=== PATIENT | female | born 1995 | race Caucasian/White ===

== ENCOUNTER 2025-11-07 10:04 | Emergency (ER) | payer MEDICAID, SELFPAY ==
[2025-11-07 10:05] VITALS: BMI 41.3
[2025-11-07 10:20] VITALS: BP 153/99; PULSE 107; RESP 18; TEMP 37.3; O2SAT 98
--- NOTE | 2025-11-07 10:54 | XR_ITS ---
EXAMINATION: PA chest single view TECHNIQUE: Upright PA chest single view Date and time: November 07, 2025, 1057 hours INDICATIONS: Shortness of breath today. FINDINGS: Significant pneumonia right base No significant cardiac enlargement Intact osseous structures IMPRESSION: Significant pneumonia right base
--- NOTE | 2025-11-07 10:57 | XR_ITS ---
Examination: CT brain head without contrast. 2-D sagittal coronal reconstructions Date and time of exam: November 072024, 11:59 a.m. INDICATIONS: Headaches beginning 3 days ago CTDI: vol (mGy): 51.6 DLP: (mGycm): 1006 Technique: Multiple CT axial sections of the brain have been obtained, 5 mm slice thickness. Contrast has not been administered. 2-D sagittal, coronal reconstructions have been obtained Low dose protocols were performed. One or more of the following dose reduction techniques were used; automated exposure control, adjustment of the mA and/or KV according to patient size, use of iterative reconstruction technique. Findings: No significant ventricular enlargement. Intra-axial or extra-axial hemorrhage density is not seen. No mass effect or midline shift Basal cisterns are not remarkable. Fourth ventricle is midline. Cranial vault intact. Impression: Negative for acute hemorrhage, mass effect or midline shift Significant chronic ethmoid sinusitis
[2025-11-07] MEDS: ACETAMINOPHEN 500 MG TABLET 1000 MG PO (11:20)
--- NOTE | 2025-11-07 11:20 | EDNOTE_ITS ---
<Statement entered by Rachael Mccall MD - 11/09/25 17:41> As co-signing physician, I was present and available for consult prn. I concur with the plan and care as documented by the midlevel provider. Upper Respiratory Inf. RME/HPI General Chief Complaint: Headache Stated Complaint: HEADACHE, COUGH, CONGESTION X3 DAYS Time Seen by Provider: 11/07/25 10:41 Arrival date/time: 11/07/25 10:04 RME / HPI RME / HPI Narrative: 22-year-old female past medical history of asthma has not used her inhaler in a long time, whose had a headache only 1 time in the past which was similar to this but associated with vertigo presents to the ER complaining of persistent left-sided headache for the past 3 days along with cough, congestion, generalized malaise, generalized weakness, wheezing, nausea, mild shortness of breath. Patient states she started her period 2 days ago and has been heavier than normal as well. Denies any numbness, tingling, weakness, vision changes, chest pain, earache, sore throat. Patient was referred here to the ER from the clinic for further evaluation. Related Data Previous Rx's ?Medication ?Instructions ?Recorded meclizine 50 mg tablet 50 mg PO BID PRN dizziness # 30 tabs 05/11/23 Allergies Allergy/AdvReac Type Severity Reaction Status Date / Time No Known Allergies Allergy Unknown Verified 11/07/25 10:07 ED Exam Narrative Physical exam: Constitutional: Patient alert and oriented. Well appearing. No acute distress. Not toxic appearing. Head: Normocephalic, atraumatic. Eyes: Periorbital regions bilaterally normal to inspection. Conjunctiva clear bilaterally. Sclera anicteric bilaterally. Pupils equal, round, reactive to light bilaterally. Extraocular movements intact bilaterally. Ears: External ears normal to inspection bilaterally. No mastoid tenderness bilaterally. EAC without edema or exudate bilaterally. TMs without erythema or bulging. Mouth/Throat: Positive scant erythema edema of oropharynx. Mucous membranes moist. No stridor or muffled voice. Uvula midline. Rise and fall of soft palate normal. No tonsillar edema or exudate. No peritonsillar fullness. No trismus. Handling secretions without difficulty. Airway widely patent. Neck: Supple. Trachea midline. No JVD. No nuchal rigidity. No midline tenderness or step-offs. Normal range of motion. Respiratory: Normal effort. No accessory muscle use or respiratory distress. Positive expiratory wheezing to lung espinoza bilaterally along with rhonchi. Cardiovascular: RRR. Normal S1/S2. No murmurs or rubs. Radial pulses intact bilaterally. Abdomen: Soft. Non-distended. Non-tender throughout. No pulsatile mass. No guarding or rebound. Negative Werner?s sign. Negative McBurney?s point tenderness. Negative Rovsing?s. Back: No midline tenderness or step-offs. No CVA tenderness to palpation bilaterally. Upper Extremities: No gross deformities. Lower Extremities: No gross deformities. No edema or calf tenderness. Neuro: Speech normal. No gross motor or sensory deficits to upper or lower extremities bilaterally. GCS 15. CN II?XII grossly intact. Skin: Warm, dry, normal color. Psych: Normal affect. Cooperative. Normal insight. Course Course Course Narrative: At the time of reassessment prior to discharge, the patient remains alert and oriented ?3 with GCS 15. Vitals are normal, pain is controlled, and the patient is tolerating oral intake without nausea or vomiting. The patient is agreeable to discharge and verbalizes understanding of the diagnosis, studies, treatment plan, medications (including side effects/precautions), and strict ER return precautions as discussed in the ED. All concerns were addressed, and the patient is comfortable with the plan. Quality Measures none Orders Category Date Time Status CT head/brain wo con Stat Exams 11/07/25 10:57 Completed XR chest 1V Stat Exams 11/07/25 10:54 Completed Blood Culture (Lab) Stat Lab 11/07/25 11:27 Received CBC Stat Lab 11/07/25 11:32 Completed CMP [Comprehensive Metabolic Panel] Stat Lab 11/07/25 11:32 Completed HCG,Qualitative Serum Stat Lab 11/07/25 11:32 Completed Lactic Acid [Lactate (Lactic Acid)] Stat Lab 11/07/25 11:32 Completed Procalcitonin Stat Lab 11/07/25 11:32 Completed Urinalysis, C/S if Indicated Stat Lab 11/07/25 11:54 Completed ALBUTEROL RT 0.5ml [Proventil Rt 0.5ml] Med 11/07/25 10:56 Discontinued 2.5 mg INH X1 ONE Acetaminophen Tab [Tylenol ES Tab] Med 11/07/25 10:56 Discontinued 1,000 mg PO X1 ONE Azithromycin Po [Zithromax PO] Med 11/07/25 12:55 Discontinued 500 mg PO X1 ONE DiphenhydrAMINE [Benadryl] Med 11/07/25 10:54 Discontinued 25 mg PO X1 ONE Ipratropium [place] Rt Claudia [Atrovent Rt Claudia] Med 11/07/25 10:56 Discontinued 0.5 mg INH X1 ONE Ketorolac Inj [Toradol Inj] Med 11/07/25 10:54 Discontinued 30 mg IM X1 ONE Prochlorperazine Inj [Compazine Inj] Med 11/07/25 10:54 Discontinued 10 mg IM X1 ONE Sodium Chloride Rt Claudia 0.9% [NS Rt Claudia 0.9%] Med 11/07/25 10:56 Active 3 ml INH PRN PRN Sodium Chloride Rt Claudia 0.9% [NS Rt Claudia 0.9%] Med 11/07/25 10:56 Active 3 ml INH PRN PRN Sodium Chloride Rt Claudia 0.9% [NS Rt Claudia 0.9%] Med 11/07/25 10:56 Active 3 ml INH PRN PRN cefTRIAXone [Rocephin] 1,000 mg Med 11/07/25 12:55 Discontinued Lidocaine 1% Pf Vial 5ml [Xylocaine 1% Pf 5 ml] 2.1 ml IM X1 dexAMETHasone INJ [Decadron Inj] Med 11/07/25 10:54 Discontinued 10 mg IM X1 ONE Vital Signs Vital signs: Vital Signs Temperature 99.2 F 11/07/25 10:20 Pulse Rate 107 H 11/07/25 10:20 Respiratory Rate 18 11/07/25 10:20 Blood Pressure 153/99 H 11/07/25 10:20 Pulse Oximetry (%) 98 11/07/25 10:20 Oxygen Delivery Method Room Air 11/07/25 10:20 Upper Respiratory Infection MDM Narrative MDM Narrative:: MDM: This patient has an uncomplicated community-acquired pneumonia. PSI port score risk class I independent of pH and partial fracture of oxygen which were not obtained maximum be class II. based on vital signs, physical exam, pulse oximetry, other testing, and underlying medical conditions, this patient appears to be appropriate for outpatient therapy with ability to stay well hydrated and complete an appropriate oral antibiotic course. This patient has evidence of an acute exacerbation of chronic bronchospastic disease. The patient has received bronchodilator treatment and has been reassessed with objective improvement noted on exam. The patient has access to further bronchodilator treatment after discharge and has received additional appropriate care. Admission was considered, but not indicated at this time. However, since there is always the possibility of decompensation, the patient has been given instructions to return immediately for any change or worsening of symptoms. The patient is also recommended to follow-up with their PMD in 2 days, or sooner, for any worsening symptoms. Patient data External records reviewed:: [facility] previous records Clinical information provided by:: patient Social determinants that could affect healthcare access:: none Patient has the following chronic illnesses:: Asthma How is presenting disease/condition affected by chronic disease/condition?: exacerbated by Evaluation data The following diagnostics were reviewed and interpreted by me:: lab results, radiology exam(s) and other (specify) Lab and/or radiology exams considered but not ordered:: Additional Labs and radiology considered, but not ordered as they were not clinically indicated at this time. Interpretation Summary: Lab work notable for minimally low hemoglobin 11.9, blood noted in urine otherwise lactic acid within normal limits, procalcitonin undetectable and there is no severe metabolic or electrolyte abnormality Influenza negative Chest x-ray concerning for pneumonia with a focal consolidation of the right lower lung base CT brain without acute intra cranial abnormality Medications / Prescriptions Medications or Prescriptions considered but not ordered:: I ordered medications based on the patient?s clinical needs and assessment, as documented in the chart. For medications not prescribed, they were not indicated for the patient's current condition, and I determined they were unnecessary at this time to avoid potential risks or complications. Medication administrations:: Medication Administration History Sodium Chloride (Sodium Chloride Rt Claudia 0.9% 3 Ml Nebu) 3 ml INH PRN PRN PRN Reason: SOLN Stop: 12/07/25 10:55 Sodium Chloride (Sodium Chloride Rt Claudia 0.9% 3 Ml Nebu) 3 ml INH PRN PRN PRN Reason: SOLN Stop: 12/07/25 10:55 Sodium Chloride (Sodium Chloride Rt Claudia 0.9% 3 Ml Nebu) 3 ml INH PRN PRN PRN Reason: SOLN Stop: 12/07/25 10:55 Discontinued Medications Acetaminophen (Acetaminophen 500 Mg Tablet) 1,000 mg PO X1 ONE Stop: 11/07/25 10:57 Last Admin: 11/07/25 11:20 Dose: 1,000 mg Documented By: Albuterol (Albuterol Rt 2.5 Mg/0.5 Ml Nebu) 2.5 mg INH X1 ONE Stop: 11/07/25 10:57 Last Admin: 11/07/25 11:42 Dose: 2.5 mg Documented By: ANA LILIA Azithromycin (Azithromycin 250 Mg Tablet) 500 mg PO X1 ONE Stop: 11/07/25 12:56 Last Admin: 11/07/25 13:44 Dose: 500 mg Documented By: Ceftriaxone Sodium 1,000 mg/ (Lidocaine HCl 2.1 ml) 0 mg IM X1 ONE Stop: 11/07/25 12:56 Last Admin: 11/07/25 13:46 Dose: 1,000 mg Documented By: Dexamethasone Sodium Phosphate (Dexamethasone Sod Phos Inj 10 Mg/Ml Vial) 10 mg IM X1 ONE Stop: 11/07/25 10:55 Last Admin: 11/07/25 11:21 Dose: 10 mg Documented By: Diphenhydramine HCl (Diphenhydramine 25 Mg Capsule) 25 mg PO X1 ONE Stop: 11/07/25 10:55 Last Admin: 11/07/25 11:24 Dose: Not Given Documented By: Non-Admin Reason: Patient Refused Ipratropium [place] (Ipratropium Rt 0.5 Mg/ 2.5 Ml Nebu) 0.5 mg INH X1 ONE Stop: 11/07/25 10:57 Last Admin: 11/07/25 11:42 Dose: 0.5 mg Documented By: ANA LILIA Ketorolac Tromethamine (Ketorolac Inj 30 Mg/Ml Vial) 30 mg IM X1 ONE Stop: 11/07/25 10:55 Last Admin: 11/07/25 11:24 Dose: Not Given Documented By: Non-Admin Reason: Patient Refused Prochlorperazine Edisylate (Prochlorperazine Inj 5 Mg/Ml Vial 2 Ml) 10 mg IM X1 ONE; Protocol Stop: 11/07/25 10:55 Last Admin: 11/07/25 11:24 Dose: Not Given Documented By: Non-Admin Reason: Patient Refused As noted Consultations Consultation(s) initiated? (list below): No Diagnosis Upper Respiratory Differential Diagnosis: upper respiratory infection, bronchitis and influenza Most likely diagnosis given after review of the tests above:: Community-acquired pneumonia complicated by acute asthma exacerbation Admission Indicated Admission indicated?: not indicated Explain why admission is indicated or not indicated:: Escalation of care including admission/observation considered but I decided to discharge because based on the overall clinical presentation, and after consideration of the patient's course in the emergency department and plan for outpatient management, I believe that neither further observation nor inpatient care is required at this time. Admission Request Was there a request for admission?: No Disposition Plan Disposition Plan: Discharge Discharge Attestation Discharge Attestation: The patient and all family members were given an opportunity to ask questions and understood the discharge instructions. Discharge instructions specifically effects, indications for sooner follow up or return to the emergency department, and the expected course of current diagnosis. Patient condition: Stable Discharge Plan Plan Patient Disposition: HOME (Self Care) Patient condition on transfer: Stable Prescriptions/Referrals Prescriptions/Med Rec: No Action meclizine 50 mg tablet 50 mg PO BID PRN (Reason: dizziness) Qty: 30 0RF Referrals: Juan Scott MD [Primary Care Provider, Family Practice] - In 1 week Problem List Clinical Impression: Pneumonia, Asthma exacerbation Patient/Caregiver Discharge Instructions Education Materials: ED Pneumonia (Adult), Asthma Additional Instructions: Follow up with your primary medical doctor within 24 hours. Return to the Emergency Room immediately for any new, worsening, continuing symptoms or any concerns at all. Return to the Emergency Room within 24 hours if you are unable to follow up with your primary medical doctor within 24 hours. Print Language: Libyan Stand Alone Forms: Emeli Award Info., Patient Portal Info Letter KIA/CHERYL Supervising Physician KIA/CHERYL Supervising Physician: Dr. Mccall
[2025-11-07 11:42] VITALS: PULSE 86
[2025-11-07] MEDS: ALBUTEROL RT 2.5 MG/0.5 ML NEBU INH (11:42)
[2025-11-07] MEDS: IPRATROPIUM RT 0.5 MG/ 2.5 ML NEBU INH (11:42)
[2025-11-07 11:43] VITALS: PULSE 86; RESP 18; O2SAT 100
[2025-11-07 11:43] LABS: Lactate (Lactic Acid) 1.2 mMol/L (0.4-2.0)
[2025-11-07 11:49] LABS: Basophils # (Auto) 0.1 Thou/mm3 (0.0-0.2); Basophils % (Auto) 1 % (0-2.5); Eosinophils # (Auto) 0.2 Thou/mm3 (0.0-0.5); Eosinophils % (Auto) 3 % (0-10); Hematocrit 37.9 % (36.0-46.0); Hemoglobin 11.9 g/dL (12.0-16.0); Immature Granulocytes Auto 0.03 Thou/mm3 (0.00-0.00); Lymphocytes # (Auto) 1.3 Thou/mm3 (1.0-4.8); Lymphocytes % (Auto) 17 % (10-50); Mean Corpuscular HGB Conc 31.4 g/dl (31.0-37.0); Mean Corpuscular Hemoglobin 26.8 pg (25.0-35.0); Mean Corpuscular Volume 85 fL (80-100); Monocytes # (Auto) 0.6 Thou/mm3 (0.0-0.8); Monocytes % (Auto) 9 % (0-12); Neutrophils # (Auto) 5.1 Thou/mm3 (1.8-7.7); Neutrophils % (Auto) 70 % (37-80); Nucleated Red Blood Cell # 0.00 Thou/mm3 (0.00-0.00); Nucleated Red Blood Cell % 0 /100 WBC (0); Platelet Count 296 Thou/mm3 (140-440); RDW Standard Deviation 42.5 fL (36.4-46.3); Red Blood Count 4.44 Miln/mm3 (4.00-5.20); White Blood Count 7.3 Thou/mm3 (3.6-11.0)
[2025-11-07 12:08] LABS: Collection Type, Urine Voided
[2025-11-07 12:09] LABS: Alanine Aminotransferase 11 U/L (10-49); Albumin, Serum 4.7 gm/dL (3.5-5.0); Albumin/Globulin Ratio 1.7 (1.2-2.2); Alkaline Phosphatase 80 U/L (46-116); Anion Gap 8 (7-16); Aspartate Amino Transferase 13 U/L (0-34); BUN/Creatinine Ratio 8 Ratio (12-20); Bilirubin,Total 0.3 mg/dL (0.3-1.2); Blood Urea Nitrogen 6 mg/dL (9-23); Calcium 9.2 mg/dL (8.3-10.6); Calcium (Corrected) 9.2 mg/dL (8.5-10.1); Carbon Dioxide 24.9 mMol/L (20.0-31.0); Chloride 107 mMol/L (98-107); Creatinine (Component) 0.8 mg/dL (0.6-1.3); Estimated Creatinine Clearance 149.6 mL/min (>60); Globulin 2.8 gm/dL (2.3-3.5); Glucose 100 mg/dL (74-106); Osmolality,Calculated 277 (275-295); Potassium 3.8 mMol/L (3.4-5.1); Procalcitonin < 0.04 ng/ml (0.0-0.49); Sodium 140 mMol/L (136-145); Total Protein 7.5 gm/dL (5.7-8.2); eGFR > 60 See Note
[2025-11-07 12:15] LABS: HCG,Qualitative Serum Negative
[2025-11-07 12:18] LABS: Bilirubin,Urine Negative (Negative); Blood,Urine 2+ (Negative); Color,Urine Yellow (Lt Yel-Yel); Culture Indicated,Urine Not Indicated; Glucose, Urine Negative (Negative); Ketones,Urine Negative (Negative); Leukocyte Esterase,Urine Negative (Negative); Nitrite,Urine Negative (Negative); PH,Urine 6.0 (5.0-7.0); Protein,Urine Trace (Neg - Trace); RBC,Urine 42 /hpf (0-3); Specific Gravity,Urine 1.024 (1.001-1.035); Squamous Epithelial Cell,Urine < 1 /hpf (0-5); Urobilinogen,Urine Negative mg/dL (0.0-1.0); WBC,Urine 1 /hpf (0-5)
[2025-11-07 12:19] LABS: Clarity,Urine Hazy (Clear/Hazy)
[2025-11-07] MEDS: AZITHROMYCIN 250 MG TABLET 500 MG PO (13:44)
[2025-11-07 15:40] VITALS: BP 142/86; PULSE 88; RESP 19; TEMP 37; O2SAT 98
== END 2025-11-07 15:41 | disposition home or self-care (01) ==
PROVIDERS: Physician Assistant; Emergency Provider Emergency Medicine; PCP Family Medicine
DX: J45.901 Unspecified asthma with (acute) exacerbation (principal); J18.9 Pneumonia, unspecified organism; R51.9 Headache, unspecified
CPT/HCPCS: 36415; 70450; 71045; 80053; 81001; 83605; 84145; 84703; 85025; 87040; 87502; 94640; 96372; 99284; J0696; J1100; J3490; J7644; A9270; J7611

== ENCOUNTER 2025-11-08 10:13 | Emergency (ER) | payer MEDICAID, SELFPAY ==
[2025-11-08 10:29] VITALS: BP 152/97; PULSE 102; RESP 22; TEMP 36.6; O2SAT 94; BMI 48.2
--- NOTE | 2025-11-08 10:41 | EDNOTE_ITS ---
<Statement entered by Rachael Mccall MD - 11/09/25 17:43> As co-signing physician, I was present and available for consult prn. I concur with the plan and care as documented by the midlevel provider. ED SOB =RME/HPI General Chief Complaint: Shortness of Breath/Dyspnea Stated Complaint: DIFF BREATHING, PT DX'D W/ PNA HERE YESTERDAY Time Seen by Provider: 11/08/25 10:32 Source: patient Arrival date/time: 11/08/25 10:13 30-year-old female with no known medical history presents to the emergency room with a chief complaint of difficulty breathing x 3 days. Patient was seen here yesterday and diagnosed with pneumonia and put on Augmentin. Mode of arrival: ambulatory Limitations: no limitations Related Data Previous Rx's ?Medication ?Instructions ?Recorded meclizine 50 mg tablet 50 mg PO BID PRN dizziness # 30 tabs 05/11/23 amoxicillin 875 mg-potassium 1 tab PO Q12H #14 tabs clavulanate 125 mg tablet azithromycin 250 mg tablet 250 mg PO QDAY 4 days #4 ta bs 11/07/25 azithromycin 500 mg tablet 500 mg PO QDAY #3 tabs 10/25 03/19 albuterol sulfate 90 mcg/actuation 2 puff inhalation Q 6H PRN 11/08/25 aerosol inhaler (Ventolin HFA) shortness of breath or wheezing #6.7 grams Allergies Allergy/AdvReac Type Severity Reaction Status Date / Time No Known Allergies Allergy Unknown Verified 11/08/25 10:14 Review of Systems Review of Systems Systems Reviewed: All systems reviewed, normal except as documented Constitutional Constitutional: Reports system reviewed and no additional complaints, except as documented, Denies fatigue, Denies fever(s), Denies headache(s) and Denies weakness Eyes Eyes: Reports system reviewed and no additional complaints, except as documented, Denies blurry vision and Denies change in vision ENT Ears, Nose, Mouth, and Throat: Reports system reviewed and no additional complaints, except as documented, Denies otalgia, Denies headache(s), Denies nasal congestion, Denies throat swelling and Denies vertigo Cardiovascular Cardiovascular: Reports system reviewed and no additional complaints, except as documented, Denies chest pain, Reports dyspnea and Denies dyspnea on exertion Respiratory Respiratory: Reports system reviewed and no additional complaints, except as documented, Reports change in phlegm color, Denies chest congestion, Reports cough, Reports dyspnea, Denies dyspnea on exertion and Reports wheezing Gastrointestinal Gastrointestinal: Reports system reviewed and no additional complaints, except as documented, Denies abdominal pain, Denies cramping, Denies nausea and Denies vomiting Genitourinary Genitourinary: Reports system reviewed and no additional complaints, except as documented Musculoskeletal Musculoskeletal: Reports system reviewed and no additional complaints, except as documented and Denies back pain Integumentary/Breasts Skin/Breast: Reports system reviewed and no additional complaints, except as documented and Denies wounds Neurologic Neurologic: Reports system reviewed and no additional complaints, except as documented, Denies confusion, Denies headache(s), Denies lack of coordination, Denies vertigo and Denies weakness Psychiatric Psychiatric: Reports system reviewed and no additional complaints, except as documented, Denies anxiety, Denies confusion, Denies depression, Denies paranoia, Denies suicidal ideation and Denies tactile hallucinations Endocrine Endocrine: Reports system reviewed and no additional complaints, except as documented and Denies fatigue Hematologic/Lymphatic Hematologic/Lymphatic: Reports system reviewed and no additional complaints, except as documented and Denies lymphadenopathy Allergic/Immunologic Allergic/Immunologic: Reports system reviewed and no additional complaints, except as documented, Denies throat swelling, Denies urticaria and Reports wheezing Past Medical History Past Medical History CARDIAC: Negative Congestive Heart Failure RESPIRATORY: Negative Chronic Obstructive Pulmonary Disease (COPD) GENITOURINARY: Negative Renal Disease ENDOCRINE: Negative Diabetes Mellitus Type 1 or Diabetes Mellitus Type 2 Social History SMOKING STATUS: Never smoker ED Exam General Limitations: Present no limitations General appearance: Present alert and in no apparent distress Head Head exam: Present atraumatic Eye Eye exam: Present normal appearance, PERRL and EOMI ENT ENT exam: Present normal exam, normal oropharynx and mucous membranes moist Neck Neck exam: Present normal inspection, full ROM and trachea midline Chest Chest inspection: Present normal inspection and symmetric chest wall rise Respiratory Respiratory exam: Present normal lung sounds bilaterally and wheezes; Absent respiratory distress, stridor, accessory muscle use or prolonged expiratory phase Expanded Respiratory Exam Location: Left: wheezes, Right: wheezes and Upper: wheezes Cardiovascular Cardiovascular exam: Present regular rate, normal rhythm and normal heart sounds Abdominal Exam Abdominal exam: Present soft and normal bowel sounds Extremities Exam Extremities exam: Present normal inspection and full ROM Back Exam Back exam: Present normal inspection and full ROM Neurological Exam Neurological exam: Present alert, oriented X3 and CN II-XII intact Psychiatric Psychiatric exam: Present normal affect and normal mood Skin Skin exam: Present warm, dry, intact and normal color Course Quality Measures none Orders Category Date Time Status Albuterol/Ipratr Rt Claudia [Duoneb Rt Claudia] Med 11/08/25 10:31 Discontinued 3 ml INH X1 ONE cefTRIAXone [Rocephin] 1,000 mg Med 11/08/25 10:31 Discontinued Lidocaine 1% Pf Vial 5ml [Xylocaine 1% Pf 5 ml] 2.1 ml IM X1 dexAMETHasone INJ [Decadron Inj] Med 11/08/25 10:31 Discontinued 10 mg PO X1 ONE Vital Signs Vital signs: Vital Signs Temperature 97.9 F 11/08/25 10:29 Pulse Rate 102 H 11/08/25 10:29 Respiratory Rate 22 H 11/08/25 10:29 Blood Pressure 152/97 H 11/08/25 10:29 Pulse Oximetry (%) 94 L 11/08/25 10:29 Oxygen Delivery Method Room Air 11/08/25 10:29 Shortness of Breath / Dyspnea MDM Narrative MDM Narrative:: 30-year-old female with no known medical history presents to the emergency room with a chief complaint of difficulty breathing x 3 days. Patient was seen here yesterday and diagnosed with pneumonia and put on Augmentin. Patient is hemodynamically stable and in no apparent distress. Patient was diagnosed with community-acquired pneumonia yesterday and was sent some antibiotics to her pharmacy. Patient began taking antibiotics this morning but came to the emergency room because the patient states her symptoms have gotten worse. Patient has some mild tachycardia and tachypnea and her O2 saturation is 94% on room air. Patient has some bilateral upper lobe wheezing. A breathing treatment and steroids were given with significant improvement to her symptoms. Patient was then reevaluated and her wheezing significantly improved. Since patient is already having a diagnosis of pneumonia she was educated to continue to take her antibiotics and inhaler was sent to her pharmacy Patient was discharged and educated to follow-up with primary care provider in the next 24 to 48 hours and return to the emergency room for any evidence of worsening signs or symptoms Patient data External records reviewed:: [facility] previous records Clinical information provided by:: patient Social determinants that could affect healthcare access:: none Patient has the following chronic illnesses:: No chronic illness How is presenting disease/condition affected by chronic disease/condition?: no chronic disease Evaluation data The following diagnostics were reviewed and interpreted by me:: lab results and radiology exam(s) Lab and/or radiology exams considered but not ordered:: Labs and radiology exams considered and ordered Interpretation Summary: N/A Medications / Prescriptions Medications or Prescriptions considered but not ordered:: Medication given Medication administrations:: Medication Administration History Discontinued Medications Albuterol/Ipratropium (Albuterol/Ipratropium (Duoneb) Rt Claudia 3 Ml Nebu) 3 ml INH X1 ONE Stop: 11/08/25 10:32 Last Admin: 11/08/25 11:22 Dose: 3 ml Documented By: ANA LILIA Ceftriaxone Sodium 1,000 mg/ (Lidocaine HCl 2.1 ml) 0 mg IM X1 ONE Stop: 11/08/25 10:32 Last Admin: 11/08/25 11:10 Dose: 1,000 mg Documented By: SAIGE Dexamethasone Sodium Phosphate (Dexamethasone Sod Phos Inj 10 Mg/Ml Vial) 10 mg PO X1 ONE Stop: 11/08/25 10:32 Last Admin: 11/08/25 11:09 Dose: 10 mg Documented By: SAIGE Medication given Consultations Consultation(s) initiated? (list below): No Diagnosis Shortness of Breath Differential Diagnosis: other (Community-acquired pneumonia/influenza/COVID-19) Most likely diagnosis given after review of the tests above:: Community-acquired pneumonia Admission Indicated Admission indicated?: not indicated Admission Request Was there a request for admission?: No Disposition Plan Disposition Plan: Discharge Discharge Attestation Discharge Attestation: The patient and all family members were given an opportunity to ask questions and understood the discharge instructions. Discharge instructions specifically effects, indications for sooner follow up or return to the emergency department, and the expected course of current diagnosis. Patient condition: Stable Discharge Plan Plan Patient Disposition: HOME (Self Care) Discharge Disposition comment: Stable Prescriptions/Referrals Prescriptions/Med Rec: New albuterol sulfate [Ventolin HFA] 90 mcg/actuation HFA aerosol inhaler 2 puff inhalation Q6H PRN (Reason: shortness of breath or wheezing) Qty: 6.7 0RF No Action meclizine 50 mg tablet 50 mg PO BID PRN (Reason: dizziness) Qty: 30 0RF azithromycin 500 mg tablet 500 mg PO QDAY Qty: 3 0RF amoxicillin-pot clavulanate 875-125 mg tablet 1 tab PO Q12H Qty: 14 0RF azithromycin 250 mg tablet 250 mg PO QDAY 4 Days Qty: 4 0RF Rx Instructions: start on day 2 of therapy Referrals: Juan Scott MD [Primary Care Provider, Family Practice] - In 1 week Problem List Clinical Impression: Community acquired pneumonia Patient/Caregiver Discharge Instructions Education Materials: ED Pneumonia (Adult) Additional Instructions: Please follow-up with your primary care provider in the next 24 to 48 hours Please continue to take your antibiotic medication to help you with your pneumonia For any evidence of worsening signs or symptoms return to the emergency room immediately Print Language: Chadian Stand Alone Forms: Emeli Award Info., Work/School Release, Patient Portal Info Letter
[2025-11-08] MEDS: ALBUTEROL/IPRATROPIUM (Duoneb) RT SOL 3 ML NEBU INH (11:22)
[2025-11-08 11:23] VITALS: PULSE 87; RESP 18; O2SAT 99
[2025-11-08 12:10] VITALS: BP 164/78; PULSE 72; RESP 18; TEMP 36.7; O2SAT 97
== END 2025-11-08 12:13 | disposition home or self-care (01) ==
PROVIDERS: Emergency Provider Nurse Practitioner Family; PCP Family Medicine
DX: J18.9 Pneumonia, unspecified organism (principal)
CPT/HCPCS: 94640; 96372; 99283; A9270; J0696; J1100; J3490